=== PATIENT | male | born 1975 ===

== ENCOUNTER 2021-07-06 21:15 | Emergency (ER) ==
[~2021-07-06] VITALS: Ht 172.7 cm; Wt 104.3 kg
== END 2021-07-06 21:38 | disposition home or self-care (01) ==
LOC: ER 21:38
DX: K64.9 Unspecified hemorrhoids (principal); K59.00 Constipation, unspecified; I10 Essential (primary) hypertension; F17.210 Nicotine dependence, cigarettes, uncomplicated
CPT/HCPCS: 99282